=== PATIENT | male | born 1955 | race Caucasian/White ===

== ENCOUNTER 2018-01-14 12:13 | Inpatient (IN) | payer MEDICAID ==
[~2018-01-14] VITALS: Ht 167.6 cm; Wt 71.7 kg
[2018-01-14 13:14] VITALS: BP 147/97
[2018-01-14 13:32] LABS: HEMATOCRIT 51.2 % (42.0-52.0); HEMOGLOBIN 16.6 G/DL (14.2-18.0); MEAN CORPUSCULAR VOLUME 85 FL (80-99); PLATELET COUNT 214 K/UL (150-450); RED BLOOD COUNT 6.01 M/UL (4.70-6.10); RED CELL DISTRIBUTION WIDTH 12.2 % (11.6-14.8); WHITE BLOOD COUNT 10.7 K/UL (4.8-10.8)
[2018-01-14 13:36] LABS: ANION GAP 15 mmol/L (5-15); BLOOD UREA NITROGEN 11 mg/dL (7-18); CALCIUM 8.5 MG/DL (8.5-10.1); CARBON DIOXIDE 19 MMOL/L (21-32); CHLORIDE 105 MMOL/L (98-107); CREATININE 1.3 MG/DL (0.55-1.30); POTASSIUM 4.1 MMOL/L (3.5-5.1); SODIUM 139 MMOL/L (136-145)
[2018-01-14 13:37] LABS: APPEARANCE,URINE CLEAR; BILIRUBIN, URINE NEGATIVE (NEGATIVE); COLOR,URINE PALE YELLOW; GLUCOSE, URINE (UA) NEGATIVE (NEGATIVE); KETONES,URINE 1+ (NEGATIVE); LEUKOCYTE ESTERASE ,URINE NEGATIVE (NEGATIVE); NITRITE,URINE NEGATIVE (NEGATIVE); PH,URINE 5 (4.5-8.0); PROTEIN,URINE 3+ (NEGATIVE); UROBILINOGEN,URINE NORMAL MG/DL (0.0-1.0)
[2018-01-14 13:48] LABS: ALANINE AMINOTRANSFERASE 22 U/L (12-78); ALBUMIN 3.2 G/DL (3.4-5.0); ALBUMIN/GLOBULIN RATIO 0.8 (1.0-2.7); ALKALINE PHOSPHATASE 81 U/L (46-116); ASPARTATE AMINO TRANSFERASE 28 U/L (15-37); BILIRUBIN,TOTAL 0.4 MG/DL (0.2-1.0); CREATINE KINASE 104 U/L (26-308)
[2018-01-14] MEDS ORDERED: levETIRAcetam 500mg/NS100ml 100 ML IVPB ONE (14:00)
--- NOTE | 2018-01-14 14:14 | Diagnostic Imaging Report ---
EXAM: XR Chest, 1 View CLINICAL HISTORY: ALOC TECHNIQUE: Frontal view of the chest. COMPARISON: No relevant prior studies available. FINDINGS: Lungs: Unremarkable. No consolidation. Pleural space: Unremarkable. No pneumothorax. Heart: Unremarkable. No cardiomegaly. Mediastinum: Unremarkable. Bones/joints: Mild degenerative changes and scoliosis of the spine. Upper abdomen: Slightly elevated left hemidiaphragm. IMPRESSION: No acute findings.
[2018-01-14] MEDS ORDERED: UNOBMED (14:19)
--- NOTE | 2018-01-14 14:28 | Diagnostic Imaging Report ---
EXAM: CT Head Without Intravenous Contrast CLINICAL HISTORY: ALOC TECHNIQUE: Axial computed tomography images of the head/brain without intravenous contrast. CTDI is 70.38 mGy and DLP is 1478 mGy-cm. One or more of the following dose reduction techniques were used: automated exposure control, adjustment of the mA and/or kV according to patient size, use of iterative reconstruction technique. COMPARISON: No relevant prior studies available. FINDINGS: No intracranial hemorrhage, abnormal intra- or extra-axial collections or parenchymal lesions are seen. There are involutional changes with prominence of the sulci, basal cisterns and ventricles. Scattered white matter hypoattenuations are present, likely from small vessel disease. Old bilateral basal ganglia and right centrum semiovale, periventricular, infarcts. The leigh-white differentiation is preserved. No evidence of mass effect, midline shift, or edema. The osseous structures are unremarkable. The visualized portions of the paranasal sinuses are clear. IMPRESSION: 1. No acute intracranial process. 2. Involutional changes with small vessel disease. 3. Old bilateral basal ganglia and right centrum semiovale, periventricular infarcts.
--- NOTE | 2018-01-14 14:38 | Emergency Room Report ---
History of Present Illness General Chief Complaint: Altered Mental Status Source: Patient, Friend, EMS Present Illness HPI Roommate heard a "clunk". The patient was found disoriented. There was no seizure activity that was witnessed. Paramedics were summoned. He's had gradually improving mentation. His blood sugar was 114 in the field. He had a similar episode "few months ago". Was seen at [facility]. Roommate states not know etiology. Had scalp laceration. Followed by neurologist in [place]. The patient has a history of a stroke 2 years ago. He takes Ultram extended release from the time of his stroke. He states he gets "mild withdrawal" if not taking opiate. No fevers, chest pain, NVD, headache, tongue trauma, neck pain, cough, dysuria, extremity pain, depression. Denies diabetes. H/O HTN Allergies: Coded Allergies: No Known Allergies (Unverified , 01/14/18) Patient History Past Medical History: see triage record Social History: Reports: smoking, drug use - THC; Denies: alcohol use Social History Narrative with room-mate Reviewed Nursing Documentation: PMH: Agreed; PSxH: Agreed Nursing Documentation-PMH Past Medical History: No History, Except For Review of Systems All Other Systems: negative except mentioned in HPI Physical Exam Vital Signs Date Time Temp Pulse Resp B/P (MAP) Pulse Ox O2 Delivery O2 Flow Rate FiO2 01/14/18 12:22 97.5 105 18 168/118 98 Room Air Sp02 EP Interpretation: reviewed, normal General Appearance: no apparent distress, alert, other - GCS 14, not know what happened, Chronically Ill, Postictal Head: other - old scalp scars Eyes: bilateral eye normal inspection, bilateral eye PERRL, bilateral eye EOMI ENT: moist mucus membranes - no lingual macerations, poor dentition Neck: supple, no bony tend Respiratory: chest non-tender, lungs clear, normal breath sounds Cardiovascular #1: regular rate, rhythm, no edema Cardiovascular #2: 2+ radial (L) Gastrointestinal: normal inspection, non tender, soft, decreased bowel sounds Genitourinary: no CVA tenderness Musculoskeletal: back normal, normal range of motion, other - atrophy Neurologic: alert, manufacturing technologist III-XII nml as tested, motor strength/tone normal, DTRs symmetric, sensory intact, speech normal, oriented - X2 - gradual improvement Psychiatric: mood/affect normal Skin: warm/dry, other - old scars and seborrheic changes Medical Decision Making Diagnostic Impression: Primary Impression: New onset seizure Additional Impressions: Opiate dependence Qualified Codes: F11.29 - Opioid dependence with unspecified opioid-induced disorder Essential hypertension ER Course Patient presents with ALOC with h/o stroke. DDx: seizure, bleed, substance ingestion, electrolyte abnormalities, AMI, occult infection amongst others. Evaluation with CT head, EKG, CXR and labs. Treatment with IV hydration and repeated exams with cardiac monitoring. Improving mentation suggests possible seizure. EKG without injury. CT with prior strokes. CXR no infiltrates. Labs with normal WBC, H/H and CMP. Elevated lactate. Tox + THC. With elevated lactate, Dx of seizure most likely. The patient is not septic. Keppra given IV. CT with periventricular old infarcts. Now fully oriented, though not remember event. Told patient Ultram might have contributed and not to take. He is concerned of possible withdrawal. Admit telemetry Dr. Cheung. Dr. Cho guidance and control system engineer. Laboratory Tests Test 01/14/18 12:45 01/14/18 13:09 01/14/18 13:25 01/14/18 14:30 White Blood Count 10.7 K/UL (4.8-10.8) Red Blood Count 6.01 M/UL (4.70-6.10) Hemoglobin 16.6 G/DL (14.2-18.0) Hematocrit 51.2 % (42.0-52.0) Mean Corpuscular Volume 85 FL (80-99) Mean Corpuscular Hemoglobin 27.6 PG (27.0-31.0) Mean Corpuscular Hemoglobin Concent 32.5 G/DL (32.0-36.0) Red Cell Distribution Width 12.2 % (11.6-14.8) Platelet Count 214 K/UL (150-450) Mean Platelet Volume 7.2 FL (6.5-10.1) Neutrophils (%) (Auto) % (45.0-75.0) Lymphocytes (%) (Auto) % (20.0-45.0) Monocytes (%) (Auto) % (1.0-10.0) Eosinophils (%) (Auto) % (0.0-3.0) Basophils (%) (Auto) % (0.0-2.0) Differential Total Cells Counted 100 Neutrophils % (Manual) 86 % (45-75) H Lymphocytes % (Manual) 9 % (20-45) L Monocytes % (Manual) 3 % (1-10) Eosinophils % (Manual) 2 % (0-3) Basophils % (Manual) 0 % (0-2) Band Neutrophils 0 % (0-8) Platelet Estimate Adequate Platelet Morphology Normal Red Blood Cell Morphology Normal Sodium Level 139 MMOL/L (136-145) Potassium Level 4.1 MMOL/L (3.5-5.1) Chloride Level 105 MMOL/L (98-107) Carbon Dioxide Level 19 MMOL/L (21-32) L Anion Gap 15 mmol/L (5-15) Blood Urea Nitrogen 11 mg/dL (7-18) Creatinine 1.3 MG/DL (0.55-1.30) Estimate Glomerular Filtration Rate 55.9 mL/min (>60) Glucose Level 145 MG/DL (74-106) H Lactic Acid Level 7.00 mmol/L (0.4-2.0) H Pending Calcium Level 8.5 MG/DL (8.5-10.1) Magnesium Level 2.2 MG/DL (1.8-2.4) Total Bilirubin 0.4 MG/DL (0.2-1.0) Aspartate Amino Transferase (AST) 28 U/L (15-37) Alanine Aminotransferase (ALT) 22 U/L (12-78) Alkaline Phosphatase 81 U/L (46-116) Total Creatine Kinase 104 U/L (26-308) Troponin I 0.005 ng/mL (0.000-0.056) Total Protein 7.4 G/DL (6.4-8.2) Albumin 3.2 G/DL (3.4-5.0) L Globulin 4.2 g/dL Albumin/Globulin Ratio 0.8 (1.0-2.7) L Thyroid Stimulating Hormone (TSH) 2.540 uiU/mL (0.358-3.740) Salicylates Level 4.0 ug/mL (2.8-20) Acetaminophen Level < 2 MCG/ML (10-30) L Serum Alcohol < 3 mg/dL Urine Color Pale yellow Urine Appearance Clear Urine pH 5 (4.5-8.0) Urine Specific [place] 1.020 (1.005-1.035) Urine Protein 3+ (NEGATIVE) H Urine Glucose (UA) Negative (NEGATIVE) Urine Ketones 1+ (NEGATIVE) H Urine Blood 5+ (NEGATIVE) H Urine Nitrite Negative (NEGATIVE) Urine Bilirubin Negative (NEGATIVE) Urine Urobilinogen Normal MG/DL (0.0-1.0) Urine Leukocyte Esterase Negative (NEGATIVE) Urine RBC Tntc /HPF (0 - 0) H Urine WBC 2-4 /HPF (0 - 0) Urine Squamous Epithelial Cells Occasional /LPF Urine Bacteria Few /HPF (NONE) Urine Opiates Screen Negative (NEGATIVE) Urine Barbiturates Screen Negative (NEGATIVE) Phencyclidine (PCP) Screen Negative (NEGATIVE) Urine Amphetamines Screen Negative (NEGATIVE) Urine Benzodiazepines Screen Negative (NEGATIVE) Urine Cocaine Screen Negative (NEGATIVE) Urine Marijuana (THC) Screen Positive (NEGATIVE) H Ammonia 25 umol/L (11-32) EKG Diagnostic Results Rate: tachycardiac ST Segments: no acute changes Rhythm Strip Diag. Results EP Interpretation: yes Rhythm: no PVC's, no ectopy, other - ST Chest X-Ray Diagnostic Results Chest X-Ray Diagnostic Results : Chest X-Ray Ordered: Yes # of Views/Limited/Complete: 1 View Indication: Other EP Interpretation: Yes Interpretation: no consolidation, no effusion, no pneumothorax Impression: No acute disease Electronically Signed by: Electronically signed by Carter Montes MD CT/MRI/US Diagnostic Results CT/MRI/US Diagnostic Results : Imaging Test Ordered: head Impression periventricular infarcts - Old Last Vital Signs Date Time Temp Pulse Resp B/P (MAP) Pulse Ox O2 Delivery O2 Flow Rate FiO2 01/14/18 16:02 Room Air 01/14/18 16:00 81 01/14/18 15:50 97.8 18 144/98 (113) 96 Status: improved Disposition: ADMITTED INPATIENT Condition: Serious Referrals: NOT CHOSEN IPA/,REFERRING (PCP) Carter Montes MD Jan 14, 2018 14:38
[2018-01-14] MEDS ORDERED: BENAZEPRIL HCL5 MG ORAL (14:43)
[2018-01-14 15:00] VITALS: BP 156/93
[2018-01-14] MEDS ORDERED: LORazepam Inj 2mg/ml 1ml IV PRN (15:45)
[2018-01-14 15:50] VITALS: BP 144/98
[2018-01-14 20:00] VITALS: BP 159/104
[2018-01-14] MEDS: NovoLOG Insulin Flexpen SUBQ SCH (21:00)
[2018-01-14] MEDS: Heparin 5000 units/ml inj SUBQ SCH (21:00)
--- NOTE | 2018-01-14 23:35 | History and Physical ---
History of Present Illness General Date patient seen: Jan 14, 2018 Time patient seen: 18:54 Reason for Hospitalization: Altered Mental Status Present Illness HPI 62 yo male with h/o htn and stroke ( around 2 years ago) presented after being found down. Patient's roommate heard a loud sound and found patient on the ground and disoriented. Roommate denies noticing any seizure like activity, no shaking, biting of the tongue or incontinence. Patient denies any LOC however did feel dizzy and mental status improved over time. Patient does admit that this happened to him in the past a few months ago and he was admitted to [facility]. On looking at [facility] records patient was diagnosed with vasovagal syncope, TTE was done and was relatively normal with EF 67%. Patient's uds positive for [place]ijuana here and patient admits that he has been on ultram since his stroke and gets withdrawals. when paramedics picked him up glucose was 114, glucose level here was 145. Patient currently denies any complaints, denies any vision changes, admits to a headache, no neck pain, no chest pain or sob, no abd pain or nausea/vomiting. social hx: occasional alcohol, smokes marijuana, denies smoking cigarettes, denies other drug use. code status discussed, would like to remain full code. fam hx reviewed, denies any sig past fam hx. Allergies: Coded Allergies: No Known Allergies (Unverified , 01/14/18) Medication History Scheduled Benazepril Hcl (Benazepril Hcl), 5 MG ORAL DAILY, (Reported) Miscellaneous Medications Unable to Obtain Medications (Unable To Obtain Meds), (Reported) Patient History History Provided By: Patient, Medical Record Healthcare decision maker Resuscitation status Full Code Advanced Directive on File No Review of Systems Constitutional: Reports: other - headache. ; Denies: sweats, fever, malaise, weakness Eye: Denies: eye pain, blurred vision, tearing, double vision, nose pain, nose congestion, acuity changes, discharge ENT: Denies: ear pain, ear discharge, nose pain, nose congestion, throat pain, throat swelling, mouth pain, hearing loss Respiratory: Denies: cough, orthopnea, shortness of breath, stridor, wheezing, MCPHERSON, sputum Cardiovascular: Denies: chest pain, edema, palpitations, syncope, PND Gastrointestinal: Denies: abdominal pain, constipation, diarrhea, nausea, vomiting, melena, hematemesis Genitourinary: Denies: discharge, dysuria, frequency, hematuria, pain, retention, incontinence, urgency, vag bleed/dc Musculoskeletal: Denies: back pain, gout, joint pain, joint swelling, muscle pain, muscle stiffness Skin: Denies: rash, change in color, change in hair/nails, dryness, lesions Psychiatric: Reports: other; Denies: prior hx, anxiety, depressed feelings, emotional problems, SI, HI, hallucinations Neurological: Denies: headache, numbness, paresthesia, seizure, tingling, tremors, focal weakness, syncope, dizziness Endocrine: Denies: excessive sweating, flushing, intolerance to temperature, increased thirst, increased urine, unexplained weight loss Hematologic/Lymphatic: Reports: other; Denies: anemia, blood clots, easy bleeding, easy bruising, swollen glands, diathesis Physical Exam General Appearance: WD/WN, no apparent distress, alert Lines, tubes and drains: peripheral HEENT: normocephalic, atraumatic, anicteric, mucous membranes moist, PERRL Neck: non-tender, normal alignment, supple, normal inspection Respiratory/Chest: chest wall non-tender, lungs clear, normal breath sounds, no respiratory distress, no accessory muscle use, respiratory distress Cardiovascular/Chest: normal peripheral pulses, normal rate, regular rhythm Abdomen: normal bowel sounds, non tender, soft, no organomegaly, no mass Extremities: normal range of motion, non-tender, normal inspection, no calf tenderness, normal capillary refill Neurologic: ski maker II-XII grossly normal, no motor/sensory deficits, alert, oriented x 3, responsive, normal mood/affect Last 24 Hour Vital Signs Date Time Temp Pulse Resp B/P (MAP) Pulse Ox O2 Delivery O2 Flow Rate FiO2 01/14/18 16:02 Room Air 01/14/18 16:00 81 01/14/18 15:50 97.8 82 18 144/98 (113) 96 01/14/18 15:22 98.2 102 20 156/93 97 Room Air 01/14/18 15:00 98.2 102 20 156/93 97 Room Air 01/14/18 13:14 105 18 Room Air 01/14/18 13:14 97.8 107 20 147/97 97 Room Air 01/14/18 12:22 97.5 105 18 168/118 98 Room Air Laboratory Tests Test 01/14/18 12:45 01/14/18 13:09 01/14/18 13:25 01/14/18 14:30 White Blood Count 10.7 K/UL (4.8-10.8) Red Blood Count 6.01 M/UL (4.70-6.10) Hemoglobin 16.6 G/DL (14.2-18.0) Hematocrit 51.2 % (42.0-52.0) Mean Corpuscular Volume 85 FL (80-99) Mean Corpuscular Hemoglobin 27.6 PG (27.0-31.0) Mean Corpuscular Hemoglobin Concent 32.5 G/DL (32.0-36.0) Red Cell Distribution Width 12.2 % (11.6-14.8) Platelet Count 214 K/UL (150-450) Mean Platelet Volume 7.2 FL (6.5-10.1) Neutrophils (%) (Auto) % (45.0-75.0) Lymphocytes (%) (Auto) % (20.0-45.0) Monocytes (%) (Auto) % (1.0-10.0) Eosinophils (%) (Auto) % (0.0-3.0) Basophils (%) (Auto) % (0.0-2.0) Differential Total Cells Counted 100 Neutrophils % (Manual) 86 % (45-75) H Lymphocytes % (Manual) 9 % (20-45) L Monocytes % (Manual) 3 % (1-10) Eosinophils % (Manual) 2 % (0-3) Basophils % (Manual) 0 % (0-2) Band Neutrophils 0 % (0-8) Platelet Estimate Adequate Platelet Morphology Normal Red Blood Cell Morphology Normal Sodium Level 139 MMOL/L (136-145) Potassium Level 4.1 MMOL/L (3.5-5.1) Chloride Level 105 MMOL/L (98-107) Carbon Dioxide Level 19 MMOL/L (21-32) L Anion Gap 15 mmol/L (5-15) Blood Urea Nitrogen 11 mg/dL (7-18) Creatinine 1.3 MG/DL (0.55-1.30) Estimat Glomerular Filtration Rate 55.9 mL/min (>60) Glucose Level 145 MG/DL (74-106) H Hemoglobin A1c 5.8 % (4.3-6.0) Lactic Acid Level 7.00 mmol/L (0.4-2.0) H 4.50 mmol/L (0.4-2.0) H Calcium Level 8.5 MG/DL (8.5-10.1) Magnesium Level 2.2 MG/DL (1.8-2.4) Total Bilirubin 0.4 MG/DL (0.2-1.0) Aspartate Amino Transf (AST/SGOT) 28 U/L (15-37) Alanine Aminotransferase (ALT/SGPT) 22 U/L (12-78) Alkaline Phosphatase 81 U/L (46-116) Total Creatine Kinase 104 U/L (26-308) Troponin I 0.005 ng/mL (0.000-0.056) Total Protein 7.4 G/DL (6.4-8.2) Albumin 3.2 G/DL (3.4-5.0) L Globulin 4.2 g/dL Albumin/Globulin Ratio 0.8 (1.0-2.7) L Thyroid Stimulating Hormone (TSH) 2.540 uiU/mL (0.358-3.740) Salicylates Level 4.0 ug/mL (2.8-20) Acetaminophen Level < 2 MCG/ML (10-30) L Serum Alcohol < 3 mg/dL Urine Color Pale yellow Urine Appearance Clear Urine pH 5 (4.5-8.0) Urine Specific [place] 1.020 (1.005-1.035) Urine Protein 3+ (NEGATIVE) H Urine Glucose (UA) Negative (NEGATIVE) Urine Ketones 1+ (NEGATIVE) H Urine Blood 5+ (NEGATIVE) H Urine Nitrite Negative (NEGATIVE) Urine Bilirubin Negative (NEGATIVE) Urine Urobilinogen Normal MG/DL (0.0-1.0) Urine Leukocyte Esterase Negative (NEGATIVE) Urine RBC Tntc /HPF (0 - 0) H Urine WBC 2-4 /HPF (0 - 0) Urine Squamous Epithelial Cells Occasional /LPF Urine Bacteria Few /HPF (NONE) Urine Opiates Screen Negative (NEGATIVE) Urine Barbiturates Screen Negative (NEGATIVE) Phencyclidine (PCP) Screen Negative (NEGATIVE) Urine Amphetamines Screen Negative (NEGATIVE) Urine Benzodiazepines Screen Negative (NEGATIVE) Urine Cocaine Screen Negative (NEGATIVE) Urine Marijuana (THC) Screen Positive (NEGATIVE) H Ammonia 25 umol/L (11-32) Test 01/14/18 21:50 Lactic Acid Level 1.30 mmol/L (0.4-2.0) Height (Feet): 5 Height (Inches): 6.00 Weight (Pounds): 158 Medications Current Medications Medications (Trade) Dose Ordered Sig/Elizabeth Route PRN Reason Start Time Stop Time Status Last Admin Dose Admin Benazepril HCl (Lotensin) 5 mg DAILY ORAL 01/15/18 09:00 02/14/18 08:59 Dextrose (Dextrose 50%) 25 ml Q30M PRN IV Hypoglycemia 01/14/18 18:00 02/13/18 17:59 Dextrose (Dextrose 50%) 50 ml Q30M PRN IV Hypoglycemia 01/14/18 18:00 02/13/18 17:59 Heparin Sodium (Porcine) (Heparin 5000 units/ml) 5,000 units EVERY 12 HOURS SUBQ 01/14/18 21:00 02/13/18 20:59 Insulin Aspart (NovoLOG) BEFORE MEALS AND HS SUBQ 01/14/18 21:00 02/13/18 20:59 Lorazepam (Ativan 2mg/ml 1ml) 1 mg Q4H PRN IV For Seizures 01/14/18 15:45 01/21/18 15:44 Sodium Chloride 1,000 ml @ 100 mls/hr Q10H IV 01/14/18 17:52 02/13/18 17:51 01/14/18 17:56 Assessment/Plan Problem List: (1) Altered mental status ICD Codes: R41.82 - Altered mental status, unspecified SNOMED: 541370878 (2) Vasovagal syncope ICD Codes: R55 - Syncope and collapse SNOMED: 089523310 (3) Dehydration ICD Codes: E86.0 - Dehydration SNOMED: 99007993 (4) Opiate dependence ICD Codes: F11.20 - Opioid dependence, uncomplicated SNOMED: 91934213 Qualifiers: Qualified Codes: F11.29 - Opioid dependence with unspecified opioid-induced disorder (5) Hyperglycemia ICD Codes: R73.9 - Hyperglycemia, unspecified SNOMED: 17156366 (6) Fall from ground level ICD Codes: W18.30XA - Fall on same level, unspecified, initial encounter SNOMED: 37927695 (7) Marijuana abuse ICD Codes: F12.10 - Cannabis abuse, uncomplicated SNOMED: 16882205 (8) Essential hypertension ICD Codes: I10 - Essential (primary) hypertension SNOMED: 45268011 (9) HARINDER (acute kidney injury) ICD Codes: N17.9 - Acute kidney failure, unspecified SNOMED: 62044646 Status: stable Assessment/Plan #altered mental status #GLF #Vasovagal syncope #opioid dependance #dehydration #marijuana abuse -ams/glf likely due to vasovagal syncope and opioid dependence/OD in the setting of dehydration and marijuana abuse -patient admitted to [facility] with similar episode, echo reviewed, relatively normal with ef 67% -fluids -stop opioids -discussed marijuana cessation for over 15 minutes as it seems to be causing side effects -patient addicted to opioids, discussed cessation for over 16 minutes , patient has been asking for opioids to nursing staff when being in no acute distress or pain. -also noted to be hyperglycemic on 145, check hgba1c, start iss, hyperglycemia may have contributed to dehydration -unlikely seizure, no need for antiepileptics, will continue to monitor closely. -seizure precautions -tele #hyperglycemia -gluc 145 - iss -accuchecks #HARINDER - Cr 1.3 - likely due to dehydration - fluids #essential htn - diffuclt to assess compliance - resume home benazepril ppx: scd diet: regular I have spent over 70 minutes in regarding patient care and counseling and over 40 minutes of face to face time with the with the patient. admit inpatient. will likely need a 2-3 day admission stay for workup and management for this patient due to concerns for seizures, syncope, harinder, dehydration, hyperglycemia Itzel Cho MD Jan 14, 2018 23:35
[2018-01-15] VITALS: BP 133/91
[2018-01-15 00:11] LABS: CREATINE KINASE 478 U/L (26-308)
[2018-01-15] MEDS ORDERED: levETIRAcetam 500mg/NS100ml 100 ML IVPB SCH (03:00)
[2018-01-15 04:00] VITALS: BP 129/92
[2018-01-15] MEDS: NovoLOG Insulin Flexpen SUBQ SCH (06:30)
[2018-01-15 08:00] VITALS: BP 133/93
[2018-01-15] MEDS: Benazepril 10mg tab ORAL SCH (08:59)
[2018-01-15] MEDS: Aspirin Baby 81mg ORAL SCH (08:59)
[2018-01-15 09:02] LABS: BASOPHILS % (AUTO) 0.7 % (0.0-2.0); EOSINOPHILS % (AUTO) 0.9 % (0.0-3.0); HEMOGLOBIN 14.5 G/DL (14.2-18.0); LYMPHOCYTES % (AUTO) 14.6 % (20.0-45.0); MEAN CORPUSCULAR VOLUME 84 FL (80-99); MONOCYTES % (AUTO) 5.5 % (1.0-10.0); NEUTROPHILS % (AUTO) 78.3 % (45.0-75.0); PLATELET COUNT 213 K/UL (150-450); RED BLOOD COUNT 5.12 M/UL (4.70-6.10); WHITE BLOOD COUNT 10.5 K/UL (4.8-10.8)
[2018-01-15] MEDS: Heparin 5000 units/ml inj SUBQ SCH ×2 (09:10→20:58)
[2018-01-15 09:42] LABS: ALANINE AMINOTRANSFERASE 20 U/L (12-78); ALBUMIN 2.8 G/DL (3.4-5.0); ALBUMIN/GLOBULIN RATIO 0.8 (1.0-2.7); ALKALINE PHOSPHATASE 71 U/L (46-116); ANION GAP 12 mmol/L (5-15); ASPARTATE AMINO TRANSFERASE 26 U/L (15-37); BILIRUBIN,TOTAL 0.9 MG/DL (0.2-1.0); BLOOD UREA NITROGEN 8 mg/dL (7-18); CALCIUM 8.3 MG/DL (8.5-10.1); CARBON DIOXIDE 20 MMOL/L (21-32); CHLORIDE 110 MMOL/L (98-107); POTASSIUM 3.3 MMOL/L (3.5-5.1); SODIUM 142 MMOL/L (136-145)
--- NOTE | 2018-01-15 10:08 | General Progress Note ---
Assessment/Plan Problem List: (1) Altered mental status ICD Codes: R41.82 - Altered mental status, unspecified SNOMED: 186199679 (2) Vasovagal syncope ICD Codes: R55 - Syncope and collapse SNOMED: 610956914 (3) Dehydration ICD Codes: E86.0 - Dehydration SNOMED: 26994295 (4) Opiate dependence ICD Codes: F11.20 - Opioid dependence, uncomplicated SNOMED: 90867258 Qualifiers: Qualified Codes: F11.29 - Opioid dependence with unspecified opioid-induced disorder (5) Hyperglycemia ICD Codes: R73.9 - Hyperglycemia, unspecified SNOMED: 53055803 (6) Fall from ground level ICD Codes: W18.30XA - Fall on same level, unspecified, initial encounter SNOMED: 46182940 (7) Marijuana abuse ICD Codes: F12.10 - Cannabis abuse, uncomplicated SNOMED: 18090916 (8) Essential hypertension ICD Codes: I10 - Essential (primary) hypertension SNOMED: 84161014 (9) HARINDER (acute kidney injury) ICD Codes: N17.9 - Acute kidney failure, unspecified SNOMED: 34460513 Status: stable Assessment/Plan #altered mental status #GLF #Vasovagal syncope #opioid dependance #dehydration #marijuana abuse -ams/glf likely due to vasovagal syncope and opioid dependence/OD in the setting of dehydration and marijuana abuse -patient admitted to [facility] with similar episode, echo reviewed, relatively normal with ef 67% -fluids -stop opioids, opioid addiction, educated on opioid and drug cessation for over 15 minutes -also noted to be hyperglycemic on 145, check hgba1c, start iss, hyperglycemia may have contributed to dehydration -unlikely seizure, no need for antiepileptics, will continue to monitor closely. -seizure precautions -tele - patient has had multiple falls at home, will need PT evaluation before discharge for safe dispo considering hx of repeated falls nand weakness #hyperglycemia #Prediabetes -gluc 145 on admission - hgba1c 5.8, educated on healthy eating - iss -accuchecks #HARINDER - Cr 1.3 - likely due to dehydration - fluids -recheck renal function #essential htn - diffuclt to assess compliance - resumed home benazepril ppx: scd diet: regular I have spent over 46 minutes in regarding patient care and counseling and over 25 minutes of face to face time with the with the patient. admit inpatient. will likely need a 2-3 day admission stay for workup and management for this patient due to concerns for seizures, syncope, harinder, dehydration, hyperglycemia Subjective Date patient seen: Jan 15, 2018 Time patient seen: 10:03 Allergies: Coded Allergies: No Known Allergies (Unverified , 01/14/18) Subjective f/y syncope, opioid and marijuana dependance, ground level falls has had multiple falls in the past discussed that patient will need PT evaluation to ensure safe discharge home no acute event sovernight ROS: 14 point ros reviewed and completed, negative except for the above Objective Last 24 Hour Vital Signs Date Time Temp Pulse Resp B/P (MAP) Pulse Ox O2 Delivery O2 Flow Rate FiO2 01/15/18 09:00 Room Air 01/15/18 08:59 133/93 01/15/18 08:00 96 01/15/18 08:00 98.0 102 20 133/93 (106) 96 01/15/18 04:00 94 01/15/18 04:00 99.0 85 20 129/92 (104) 98 01/15/18 00:00 68 01/15/18 00:00 98.0 100 20 133/91 (105) 95 01/14/18 21:00 Room Air 01/14/18 20:00 98.5 90 20 159/104 (122) 97 01/14/18 16:02 Room Air 01/14/18 16:00 81 01/14/18 15:50 97.8 82 18 144/98 (113) 96 01/14/18 15:22 98.2 102 20 156/93 97 Room Air 01/14/18 15:00 98.2 102 20 156/93 97 Room Air 01/14/18 13:14 105 18 Room Air 01/14/18 13:14 97.8 107 20 147/97 97 Room Air 01/14/18 12:22 97.5 105 18 168/118 98 Room Air Intake and Output 01/14/18 01/15/18 19:00 07:00 Intake Total 1100 ml Balance 1100 ml Intake IV Total 1100 ml # Voids 2 4 Laboratory Tests 01/14/18 12:45: White Blood Count 10.7, Red Blood Count 6.01, Hemoglobin 16.6, Hematocrit 51.2, Mean Corpuscular Volume 85, Mean Corpuscular Hemoglobin 27.6, Mean Corpuscular Hemoglobin Concent 32.5, Red Cell Distribution Width 12.2, Platelet Count 214, Mean Platelet Volume 7.2, Neutrophils (%) (Auto) , Lymphocytes (%) (Auto) , Monocytes (%) (Auto) , Eosinophils (%) (Auto) , Basophils (%) (Auto) , Differential Total Cells Counted 100, Neutrophils % (Manual) 86H, Lymphocytes % (Manual) 9L, Monocytes % (Manual) 3, Eosinophils % (Manual) 2, Basophils % ( Manual) 0, Band Neutrophils 0, Platelet Estimate Adequate, Platelet Morphology Normal, Red Blood Cell Morphology Normal, Sodium Level 139, Potassium Level 4.1 , Chloride Level 105, Carbon Dioxide Level 19L, Anion Gap 15, Blood Urea Nitrogen 11, Creatinine 1.3, Estimat Glomerular Filtration Rate 55.9, Glucose Level 145H, Hemoglobin A1c 5.8, Lactic Acid Level 7.00H, Calcium Level 8.5, Magnesium Level 2.2, Total Bilirubin 0.4, Aspartate Amino Transf (AST/SGOT) 28, Alanine Aminotransferase (ALT/SGPT) 22, Alkaline Phosphatase 81, Total Creatine Kinase 104, Troponin I 0.005, Total Protein 7.4, Albumin 3.2L, Globulin 4.2, Albumin/Globulin Ratio 0.8L, Thyroid Stimulating Hormone (TSH) 2.540, Salicylates Level 4.0, Acetaminophen Level < 2L, Serum Alcohol < 3 01/14/18 13:09: Urine Color Pale yellow, Urine Appearance Clear, Urine pH 5, Urine Specific [place] 1.020, Urine Protein 3+H, Urine Glucose (UA) Negative, Urine Ketones 1+H , Urine Blood 5+H, Urine Nitrite Negative, Urine Bilirubin Negative, Urine Urobilinogen Normal, Urine Leukocyte Esterase Negative, Urine RBC TntcH, Urine WBC 2-4, Urine Squamous Epithelial Cells Occasional, Urine Bacteria Few, Urine Opiates Screen Negative, Urine Barbiturates Screen Negative, Phencyclidine (PCP ) Screen Negative, Urine Amphetamines Screen Negative, Urine Benzodiazepines Screen Negative, Urine Cocaine Screen Negative, Urine Marijuana (THC) Screen PositiveH 01/14/18 13:25: Ammonia 25 01/14/18 14:30: Lactic Acid Level 4.50H 01/14/18 21:50: Lactic Acid Level 1.30, Total Creatine Kinase 478H 01/15/18 08:45: Lactic Acid Level 1.20, White Blood Count 10.5, Red Blood Count 5.12, Hemoglobin 14.5, Hematocrit 43.0, Mean Corpuscular Volume 84, Mean Corpuscular Hemoglobin 28.4, Mean Corpuscular Hemoglobin Concent 33.8, Red Cell Distribution Width 12.0, Platelet Count 213, Mean Platelet Volume 6.8, Neutrophils (%) (Auto) 78.3H, Lymphocytes (%) (Auto) 14.6L, Monocytes (%) (Auto ) 5.5, Eosinophils (%) (Auto) 0.9, Basophils (%) (Auto) 0.7, Sodium Level 142, Potassium Level 3.3L, Chloride Level 110H, Carbon Dioxide Level 20L, Anion Gap 12, Blood Urea Nitrogen 8, Creatinine 1.0, Estimat Glomerular Filtration Rate > 60, Glucose Level 86, Calcium Level 8.3L, Total Bilirubin 0.9, Aspartate Amino Transf (AST/SGOT) 26, Alanine Aminotransferase (ALT/SGPT) 20, Alkaline Phosphatase 71, Total Protein 6.5, Albumin 2.8L, Globulin 3.7, Albumin/Globulin Ratio 0.8L Height (Feet): 5 Height (Inches): 6.00 Weight (Pounds): 158 General Appearance: WD/WN, no apparent distress, alert EENT: PERRL/EOMI, normal ENT inspection, TMs normal, pharynx normal Neck: non-tender, normal alignment, supple, normal inspection Cardiovascular: normal peripheral pulses, normal rate, regular rhythm Respiratory/Chest: chest wall non-tender, lungs clear, normal breath sounds, no respiratory distress, no accessory muscle use Abdomen: normal bowel sounds, non tender, soft, no organomegaly, no mass Extremities: normal range of motion, non-tender Neurologic: cart driver II-XII grossly normal, no motor/sensory deficits, alert, oriented x 3, responsive, normal mood/affect Itzel Cho MD Jan 15, 2018 10:08
[2018-01-15 12:00] VITALS: BP 141/61
[2018-01-15 16:00] VITALS: BP 133/76
[2018-01-15 20:00] VITALS: BP 146/85
[2018-01-15] MEDS ORDERED: Atorvastatin 80mg tab ORAL SCH (21:00)
[2018-01-16] VITALS: BP 146/90
[2018-01-16 04:00] VITALS: BP 148/90
[2018-01-16 08:00] VITALS: BP 142/92
--- NOTE | 2018-01-16 09:02 | Discharge Instructions ---
Discharge Instructions Discharge Instructions Follow up with: PCP Call MD/Return to Hospital if: feel lightheaded / fall / have headaches/chest pain or sob. Services at Discharge: physical therapy Activity: resume normal activities Special Instructions stop opioids and marijuana use. For Congestive Heart Failure Reminder Report to your physician any weight gain of 5 pounds or more in one week. Itzel Cho MD Jan 16, 2018 09:02
--- NOTE | 2018-01-16 09:10 | Discharge Summary ---
Discharge Summary Hospital Course Date of Admission Jan 14, 2018 at 14:05 Date of Discharge 01/16/18 Admitting Diagnosis Encephalopathy HPI Denys Hutchison is a 62 year old male who was admitted on Jan 14, 2018 at 14:05 for Encephalopathy h/o htn and stroke ( around 2 years ago) presented after being found down. Patient's roommate heard a loud sound and found patient on the ground and disoriented. Roommate denies noticing any seizure like activity, no shaking, biting of the tongue or incontinence. Patient denies any LOC however did feel dizzy and mental status improved over time. Patient does admit that this happened to him in the past a few months ago and he was admitted to [facility]. On looking at [facility] records patient was diagnosed with vasovagal syncope, TTE was done and was relatively normal with EF 67%. Patient's uds positive for marijuana here and patient admits that he has been on ultram since his stroke and gets withdrawals. when paramedics picked him up glucose was 114, glucose level here was 145. Patient currently denies any complaints, denies any vision changes, admits to a headache, no neck pain, no chest pain or sob, no abd pain or nausea/vomiting. discussed with patient to stop marijuana use and ultram use, as this is likely cause of his syncopal event. Patient states he knows this and has been told in the past on previous admit to [facility]. States he will quit. PT evaluated, recommends HH PT patient is stable from a medical standpoint for dc home with PT f/u with pcp in 1 week Physical Exam: General Appearance: WD/WN, no apparent distress, alert EENT: PERRL/EOMI, normal ENT inspection, TMs normal, pharynx normal Neck: non-tender, normal alignment, supple, normal inspection Cardiovascular: normal peripheral pulses, normal rate, regular rhythm Respiratory/Chest: chest wall non-tender, lungs clear, normal breath sounds, no respiratory distress, no accessory muscle use Abdomen: normal bowel sounds, non tender, soft, no organomegaly, no mass Extremities: normal range of motion, non-tender 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, no motor/sensory deficits, alert, oriented x 3, responsive, normal mood/affect Hospital Course #altered mental status #GLF #Vasovagal syncope #opioid dependance #dehydration #marijuana abuse -ams/glf likely due to vasovagal syncope and opioid dependence/OD in the setting of dehydration and marijuana abuse -patient admitted to [facility] with similar episode, echo reviewed, relatively normal with ef 67% -fluids -stop opioids, opioid addiction, educated on opioid and drug cessation for over 15 minutes -also noted to be hyperglycemic on 145, check hgba1c, start iss, hyperglycemia may have contributed to dehydration -unlikely seizure, no need for antiepileptics, will continue to monitor closely. -seizure precautions -tele - PT evaluated patient, rec home health PT - discussed with patient that he needs to stop marijuana use and ultram use. #hyperglycemia #Prediabetes -gluc 145 on admission - hgba1c 5.8, educated on healthy eating - iss -accuchecks #HARINDER - Cr 1.3 - likely due to dehydration - fluids -recheck renal function #essential htn - diffuclt to assess compliance - resumed home benazepril I have spent over 38 minutes in regarding patient care and counseling and discharge planning and over 25 minutes of face to face time with the with the patient. Discharge Condition Upon Discharge: stable Discharge Disposition Patient was discharged to home with PT Discharge Diagnoses: (1) Fall from ground level (2) Marijuana abuse (3) Opiate dependence (4) Dehydration (5) Altered mental status (6) Vasovagal syncope (7) HARINDER (acute kidney injury) (8) Elevated lactic acid level Discharge Instructions Discharge Instructions Follow up with: PCP Call MD/Return to Hospital if: feel lightheaded / fall / have headaches/chest pain or sob. Services Upon Discharge: physical therapy Activity: resume normal activities Itzel Cho MD Jan 16, 2018 09:10
[2018-01-16 09:22] VITALS: BP 142/92
[2018-01-16] MEDS: Benazepril 10mg tab ORAL SCH (09:22)
[2018-01-16] MEDS: Aspirin Baby 81mg ORAL SCH (09:22)
[2018-01-16] MEDS: Heparin 5000 units/ml inj SUBQ SCH (09:24)
[2018-01-16] MEDS ORDERED: KEPPRA500 M4 ORAL (09:58)
--- NOTE | 2018-01-16 12:45 | Consultation ---
History of Present Illness General Chief Complaint: Altered Mental Status Present Illness HPI 62 yo male with h/o high blood pressure and stroke presented after being found down. the pt was admitted for ams. the pt was confused however was able to answer the questions. the pt in addition has hx of opioid abuse and mj abuse. the pts mentation is improving. the pt has poor insight about his substance abuse. the pt has mild cognitive impairment. Allergies: Coded Allergies: No Known Allergies (Unverified , 01/14/18) Medication History Scheduled Benazepril Hcl (Benazepril Hcl), 5 MG ORAL DAILY, (Reported) Levetiracetam (Keppra), 500 MG ORAL EVERY 12 HOURS Discontinued Medications Unable to Obtain Medications (Unable To Obtain Meds), (Reported) Discontinued Reason: MD discontinued med Patient History Healthcare decision maker Resuscitation status Full Code Advanced Directive on File No Past Medical/Surgical History Past Medical/Surgical History: (1) Altered mental status (2) Dehydration (3) Hyperglycemia (4) Opiate dependence (5) Vasovagal syncope (6) Fall from ground level (7) Marijuana abuse (8) Essential hypertension (9) HARINDER (acute kidney injury) (10) Elevated lactic acid level Review of Systems Psychiatric: Reports: prior hx, anxiety, depressed feelings, emotional problems Physical Exam General Appearance: no apparent distress, alert Neurologic: normal mood/affect Last 24 Hour Vital Signs Date Time Temp Pulse Resp B/P (MAP) Pulse Ox O2 Delivery O2 Flow Rate FiO2 01/16/18 09:22 142/92 01/16/18 09:00 Room Air 01/16/18 08:00 98.2 83 20 142/92 (109) 97 01/16/18 07:47 85 01/16/18 04:00 58 01/16/18 04:00 98.2 72 19 148/90 (109) 96 01/16/18 00:00 98.4 71 18 146/90 (108) 96 01/16/18 00:00 68 01/15/18 21:00 Room Air 01/15/18 20:00 99.8 66 19 146/85 (105) 97 01/15/18 20:00 72 01/15/18 16:00 98.2 87 18 133/76 (95) 98 01/15/18 16:00 66 Intake and Output 01/15/18 01/16/18 19:00 07:00 Intake Total 360 ml 268 ml Output Total 500 ml 300 ml Balance -140 ml -32 ml Intake Oral 360 ml IV Total 268 ml Output Urine Total 500 ml 300 ml # Voids 1 # Bowel Movements 1 Height (Feet): 5 Height (Inches): 6.00 Weight (Pounds): 158 Assessment/Plan Problem List: (1) Opiate dependence ICD Codes: F11.20 - Opioid dependence, uncomplicated SNOMED: 75956917 Qualifiers: Qualified Codes: F11.29 - Opioid dependence with unspecified opioid-induced disorder (2) encephalopathy due to toxin Status: stable, progressing Assessment/Plan the pt is on Ativan prn the pt would benefit from low dose of antipsychotic if mentation is not improved. the pt may benefit from MRI of brain Farrukh Olivera MD Jan 16, 2018 12:45
--- NOTE | 2018-01-16 15:15 | Electroencephalogram ---
DATE OF TRACIN01/15/2018 REQUESTING PHYSICIAN: Itzel Cho M.D. READING PHYSICIAN: Ozzie Colindres M.D. PROCEDURE PERFORMED: Electroencephalogram. HISTORY: This EEG was performed on a 62-year-old gentleman with history of lightheadedness, dizziness, and then loss of consciousness. The purpose of this EEG was to evaluate the patient for ongoing ictal or interictal phenomena. TECHNICAL NOTE: This EEG was performed on a [employer] with electrodes placed on the scalp according to the International 10-20 system. [id number] and [id number] montages were used. The EEG was technically satisfactory and was performed in the awake, drowsy, and sleep states. OBSERVATION: In the best awake state, the background activity consisted of 8-8.5 Hz alpha activity. Drowsiness was characterized by dissolution of the alpha rhythm and the appearance of slower frequencies in the 6-7 Hz theta range. During drowsiness, a few interspersed T3 sharp and slow wave discharges were noted. Stage II sleep was characterized by further slowing of the background in the delta and theta range, the presence of vertex waves, and 14 Hz sleep spindles. No definite focal slowing was noted. IMPRESSION: This is an abnormal EEG characterized by T3 sharp and slow wave discharges seen during drowsiness. COMMENT: This study is consistent with a left mid temporal epileptogenic focus. Clinical correlation is recommended. Ozzie Colindres M.D., M.S.P.H. DR: Radha JOB#: [id number] CC: [employer]
== END 2018-01-16 11:47 | disposition home health service (06) | DRG 52 ==
LOC: EDBD 12:13 → EMR 13:30 → 2E 14:05 → EDBEDREQ 14:34 → 2E 15:43
DX: G93.40 Encephalopathy, unspecified (principal); N17.9 Acute kidney failure, unspecified; F11.20 Opioid dependence, uncomplicated; E86.0 Dehydration; R55 Syncope and collapse; R73.9 Hyperglycemia, unspecified; Z91.81 History of falling; F12.10 Cannabis abuse, uncomplicated; I10 Essential (primary) hypertension; R73.03 Prediabetes; Z86.73 Personal history of transient ischemic attack (TIA), and cerebral infarction without residual deficits; G31.84 Mild cognitive impairment of uncertain or unknown etiology
CPT/HCPCS: 36415; 70450; 71045; 80053; 80307; 80329; 81003; 82140; 82550; 82962; 83036; 83605; 83735; 84443; 84484; 85007; 85025; 87040; 95819; 96361; 96374; 96375; 96376; 99285; J1815; J8499